=== PATIENT | female | born 1950 | race African-American/Black ===

== ENCOUNTER 2024-02-12 22:33 | Inpatient (IN) | payer MEDICARE, MEDICAID ==
[~2024-02-12] VITALS: Ht 162.6 cm; Wt 59.4 kg
[2024-02-12 23:54] LABS: HEMATOCRIT. 37.6 % (36.0-48.0); HEMOGLOBIN. 12.7 g/dL (12.0-16.0); MEAN CORPUSCULAR HEMOGLOBIN 34.9 pg (28.0-32.0); MEAN CORPUSCULAR HGB CONC 33.8 g/dL (31.0-37.0); MEAN CORPUSCULAR VOLUME 103.4 fL (81.0-99.0); MEAN PLATELET VOLUME 7.5 fl (7.4-10.4); PLATELET 347 x1000/uL (130-400); RED BLOOD CELL COUNT 3.63 mill/uL (4.2-5.4); RED CELL DISTRIBUTION WIDTH 13.5 % (11.6-14.6); WHITE BLOOD COUNT 8.3 x1000/uL (4.5-11.0)
[2024-02-12 23:57] LABS: CHLORIDE 101 mEq/L (98-107); SODIUM 132 mEq/L (136-145)
[2024-02-12 23:58] LABS: CALCIUM 8.8 mg/dL (8.7-10.4); CARBON DIOXIDE 19 mEq/L (21-32)
[2024-02-13] VITALS (29 sets, daily range): BP systolic 111–175; BP diastolic 53–79; PULSE 62–106; RESP 11–23; TEMP 35.78064–37.11408; O2SAT 86–100
[2024-02-13] LABS: DIFFERENTIAL COMMENT 1
[2024-02-13 00:03] LABS: GLUCOSE 127 mg/dL (70-105); UREA NITROGEN BLOOD 72 mg/dL (9-23)
[2024-02-13 00:04] LABS: AMMONIA 19 uMol/L (<32)
[2024-02-13 00:05] LABS: ACETAMINOPHEN < 2 ug/mL (10-30)
[2024-02-13 00:07] LABS: PROTHROMBIN TIME 11.6 sec (9.6-11.0)
[2024-02-13 00:37] LABS: CREATININE 7.8 mg/dL (0.6-1.0)
[2024-02-13 00:38] LABS: POTASSIUM 7.5 mEq/L (3.5-5.1); TROPONIN I HIGH SENSITIVITY 123 ng/L (3.0-34)
[2024-02-13 00:44] LABS: ETHANOL BLOOD < 10 mg/dL (<10)
[2024-02-13 01:00] LABS: PLATELET ESTIMATE NORMAL
[2024-02-13] MEDS ORDERED: SODIUM CHLORIDE 0.9% 1,000 ML IV ONE (01:00)
[2024-02-13] MEDS ORDERED: CALCIUM GLUCONATE 1GM PREMIX 50 ML IV ONE (01:00)
[2024-02-13] MEDS: DEXTROSE 50% WATER 50ML SYRINGE IV ONE ×2 (01:00→06:04)
[2024-02-13] MEDS: SODIUM CHLORIDE 0.9% 250 ML IV ONE (01:11)
[2024-02-13] MEDS: PIPERACILLIN/TAZO 3.375G/50ML 50 ML IV ONE (02:19)
[2024-02-13] MEDS: SODIUM BICARBONATE 8.4% 50MEQ/50ML SYR IV ONE (02:19)
[2024-02-13] MEDS: SODIUM POLYSTYRENE SULFONATE 15 G/60 ML BOT PO ONE (02:20)
[2024-02-13] MEDS: LEVETIRACETAM 500MG PREMIX 100 ML IV ONE (02:54)
[2024-02-13] MEDS ORDERED: ACETAMINOPHEN 650MG SUPP PR PRN ×2 (03:15)
[2024-02-13] MEDS ORDERED: IPRATROPIUM/ALBUTEROL 0.5-3(2.5)MG/3ML NEB HHN PRN (03:15)
[2024-02-13] MEDS ORDERED: ACETAMINOPHEN 325MG TABLET PO PRN (03:15)
[2024-02-13] MEDS ORDERED: ONDANSETRON HCL 4MG/2ML INJ IV PRN (03:15)
[2024-02-13] MEDS: NICARDIPINE 40MG/200ML PREMIX 200 ML IV PRN (03:40)
[2024-02-13] MEDS: CALCIUM GLUCONATE 1GM PREMIX 50 ML IV SCH (03:45)
[2024-02-13] MEDS: FUROSEMIDE 40MG/4ML VIAL IV SCH (03:56)
[2024-02-13] MEDS: VANCOMYCIN 1.25GM/250ML 250 ML IV ONE (04:16)
[2024-02-13 04:34] LABS: CREATINE KINASE MB FRACTION 4.2 ng/mL (0.5-3.6)
[2024-02-13] MEDS: INSULIN REGULAR (HUMULIN R) 1000UNITS/10ML VIAL IV SCH (04:45)
[2024-02-13] MEDS: INSULIN REGULAR (HUMULIN R) 1000UNITS/10ML VIAL IV ONE ×2 (04:49→06:04)
[2024-02-13 05:07] LABS: CREATININE 7.4 mg/dL (0.6-1.0); POTASSIUM 7.1 mEq/L (3.5-5.1)
[2024-02-13] MEDS: ENOXAPARIN 30MG/0.3ML SYR SUBCUT SCH (05:15)
[2024-02-13] MEDS: CALCIUM CHLORIDE 1GM/10ML SYR IV ONE (06:04)
[2024-02-13] MEDS: ALBUTEROL (0.083%) 2.5MG/3ML NEB HHN SCH (06:30)
[2024-02-13] MEDS: INSULIN LISPRO 100 UNITS/ML SUBCUT SCH (08:20)
[2024-02-13] MEDS: DEXTROSE 50% WATER 50ML SYRINGE IV PRN (08:58)
[2024-02-13] MEDS: BLOOD SUGAR DIAGNOSTIC STRIP TEST SCH (09:05)
[2024-02-13] MEDS: LEVETIRACETAM 500MG PREMIX 100 ML IV SCH ×2 (09:08→22:18)
[2024-02-13] MEDS: PANTOPRAZOLE SODIUM 40 MG/VIAL IV SCH (09:08)
[2024-02-13] MEDS: DEXTROSE 50% WATER 50ML SYRINGE IV NR ×2 (10:15→23:12)
[2024-02-13] MEDS: SODIUM ZIRCONIUM CYCLOSILICATE 10GM/PACKET PO NR ×2 (10:15→23:12)
[2024-02-13] MEDS: ALBUTEROL (0.083%) 2.5MG/3ML NEB HHN NR (10:20)
[2024-02-13 10:24] LABS: BG BASE EXCESS -5.3 mmol/L (-2.0-3.0); BG CARBOXYHEMOGLOBIN 0.9 % (0.5-1.5); BG DEOXYHEMOGLOBIN 8.7 % (0.0-5.0); BG HCO3 ACT 20.5 mmol/L (21.0-28.0); BG METHEMOGLOBIN 0.2 % (0.5-1.5); BG OXYGEN SATURATION 91.2 % (94.0-98.0); BG OXYHEMOGLOBIN 90.2 % (94.0-98.0); BG PH 7.316 (7.350-7.450); BG PO2 65.2 mmHg (83.0-108.0); BG SAMPLE SITE RIGHT BRACHIAL; BG TOTAL HEMOGLOBIN 11.9 g/dL (12.0-16.0); BG VENT MODE MASK - SIMPLE
[2024-02-13 10:28] LABS: CLARITY URINE CLEAR (CLEAR); COLOR URINE YELLOW (YELLOW); GLUCOSE URINE NEGATIVE (NEGATIVE); KETONES URINE NEGATIVE (NEGATIVE); LEUKOCYTE ESTERASE URINE NEGATIVE (NEGATIVE); NITRITE URINE NEGATIVE (NEGATIVE); OCCULT BLOOD URINE 2+ (NEGATIVE); PH URINE 7.5 (4.5-8.0); PROTEIN URINE 3+ (NEGATIVE); SPECIFIC GRAVITY URINE 1.011 (1.005-1.030); UROBILINOGEN URINE 0.2 E.U./dL (0.2-1.0)
[2024-02-13] MEDS: NALOXONE HCL 0.4MG/ML 1ML VIAL IV NR (10:28)
[2024-02-13] MEDS: SODIUM BICARBONATE 8.4% 50MEQ/50ML SYR IV NR ×2 (10:37→23:11)
[2024-02-13] MEDS: PIPERACILLIN/TAZO 3.375G/50ML IV SCH ×2 (10:37→16:24)
[2024-02-13] MEDS: INSULIN REGULAR (HUMULIN R) 1000UNITS/10ML VIAL IV NR ×2 (10:42→23:11)
[2024-02-13 10:46] LABS: CALCIUM 9.1 mg/dL (8.7-10.4)
[2024-02-13 10:47] LABS: *AMPHETAMINES SCREEN URINE NEGATIVE (NEGATIVE); *BARBITURATES SCREEN URINE NEGATIVE (NEGATIVE); *BENZODIAZEPINES SCREEN URINE NEGATIVE (NEGATIVE); *COCAINE SCREEN URINE NEGATIVE (NEGATIVE); CANNABINOID URINE SCREEN NEGATIVE (NEGATIVE); ECSTASY MDMA SCREEN URINE NEGATIVE (NEGATIVE); METHADONE URINE SCREEN NEGATIVE (NEGATIVE); OPIATES URINE SCREEN PRESUMPTIVE POSITIVE (NEGATIVE); PHENCYCLIDINE URINE SCREEN NEGATIVE (NEGATIVE)
[2024-02-13 10:53] LABS: SQUAMOUS EPITHELIAL CELL URINE 2+ /lpf (RARE/1+)
[2024-02-13 10:54] LABS: BACTERIA URINE TRACE; RBC URINE 25-50 /hpf (0-2); WBC URINE 0-2 /hpf (0-2)
[2024-02-13] MEDS: CALCIUM GLUCONATE 1GM PREMIX 50 ML IV NR (11:07)
[2024-02-13 11:44] LABS: POTASSIUM 6.9 mEq/L (3.5-5.1)
[2024-02-13 11:45] LABS: CREATININE 7.7 mg/dL (0.6-1.0)
[2024-02-13 13:27] LABS: HEPATITIS B SURFACE ANTIGEN NEGATIVE (Negative)
[2024-02-13 13:47] LABS: HEPATITIS A AB IGM NEGATIVE (Negative)
[2024-02-13 13:48] LABS: HEPATITIS B CORE AB IGM NEGATIVE (Negative); HEPATITIS C AB REACTIVE (Pos) (Negative)
[2024-02-13] MEDS ORDERED: PIPERACILLIN/TAZOBACTAM 3.375 G in DEXTROSE 5% WATER 50 ML IV SCH (14:00)
[2024-02-13 14:55] LABS: CREATINE KINASE MB FRACTION 5.1 ng/mL (0.5-3.6)
[2024-02-13] MEDS: HYDRALAZINE 20MG/ML VIAL IV PRN (21:18)
[2024-02-13 22:38] LABS: CREATINE KINASE MB FRACTION 3.9 ng/mL (0.5-3.6)
[2024-02-13 22:46] LABS: CREATININE 5.9 mg/dL (0.6-1.0)
[2024-02-13] MEDS: NICARDIPINE 50 MG in SODIUM CHLORIDE 0.9% 230 ML IV PRN (23:04)
[2024-02-14] VITALS (74 sets, daily range): BP systolic 115–172; BP diastolic 49–105; PULSE 66–101; RESP 13–26; TEMP 36.61404–37.00296; O2SAT 86–100
[2024-02-14] MEDS: MORPHINE SULFATE 2 MG/ML INJ (NOT FOR IM USE) IV SCH (01:42)
[2024-02-14 06:34] LABS: BG BASE EXCESS 0.9 mmol/L (-2.0-3.0); BG CARBOXYHEMOGLOBIN 0.3 % (0.5-1.5); BG DEOXYHEMOGLOBIN 0.7 % (0.0-5.0); BG FRACTION INSPIRED OXYGEN 100; BG HCO3 ACT 25.7 mmol/L (21.0-28.0); BG METHEMOGLOBIN 0.3 % (0.5-1.5); BG OXYGEN SATURATION 99.3 % (94.0-98.0); BG OXYHEMOGLOBIN 98.7 % (94.0-98.0); BG PCO2 41.8 mmHg (32.0-45.0); BG PH 7.407 (7.350-7.450); BG PO2 167.4 mmHg (83.0-108.0); BG TOTAL HEMOGLOBIN 11.5 g/dL (12.0-16.0); BG VENT MODE HIGH FLOW
[2024-02-14 06:38] LABS: BG BASE EXCESS -0.1 mmol/L (-2.0-3.0); BG DEOXYHEMOGLOBIN 11.4 % (0.0-5.0); BG FRACTION INSPIRED OXYGEN 100; BG HCO3 ACT 24.2 mmol/L (21.0-28.0); BG METHEMOGLOBIN 0.3 % (0.5-1.5); BG OXYGEN SATURATION 88.6 % (94.0-98.0); BG OXYHEMOGLOBIN 88.3 % (94.0-98.0); BG PCO2 38.5 mmHg (32.0-45.0); BG PH 7.417 (7.350-7.450); BG PO2 53.1 mmHg (83.0-108.0); BG TOTAL HEMOGLOBIN 11.8 g/dL (12.0-16.0); BG VENT MODE MASK - NRB
[2024-02-14 06:57] LABS: HEMATOCRIT. 32.1 % (36.0-48.0); HEMOGLOBIN. 10.7 g/dL (12.0-16.0); MEAN CORPUSCULAR HEMOGLOBIN 35.1 pg (28.0-32.0); MEAN CORPUSCULAR HGB CONC 33.2 g/dL (31.0-37.0); MEAN CORPUSCULAR VOLUME 105.7 fL (81.0-99.0); MEAN PLATELET VOLUME 7.6 fl (7.4-10.4); PLATELET 285 x1000/uL (130-400); RED BLOOD CELL COUNT 3.04 mill/uL (4.2-5.4); RED CELL DISTRIBUTION WIDTH 14.1 % (11.6-14.6); WHITE BLOOD COUNT 14.1 x1000/uL (4.5-11.0)
[2024-02-14 07:20] LABS: CHLORIDE 108 mEq/L (98-107); POTASSIUM 5.4 mEq/L (3.5-5.1); SODIUM 145 mEq/L (136-145)
[2024-02-14 07:21] LABS: CALCIUM 8.6 mg/dL (8.7-10.4); CARBON DIOXIDE 22 mEq/L (21-32)
[2024-02-14 07:26] LABS: GLUCOSE 111 mg/dL (70-105)
[2024-02-14 07:27] LABS: LDL CHOLESTEROL 61 mg/dL (5-100); TRIGLYCERIDE 119 mg/dL (0-150); UREA NITROGEN BLOOD 47 mg/dL (9-23)
[2024-02-14 07:28] LABS: CHOLESTEROL 118 mg/dL (<200); DIFFERENTIAL COMMENT 1; HDL CHOLESTEROL 30 mg/dL (>65); T4 FREE 1.11 ng/dL (0.89-1.76); THYROID STIMULATING HORMONE 0.51 uIU/mL (0.55-4.78)
[2024-02-14 07:29] LABS: PHOSPHORUS 4.6 mg/dL (2.5-4.9)
[2024-02-14 07:41] LABS: CREATININE 6.2 mg/dL (0.6-1.0)
[2024-02-14] MEDS ORDERED: LIDOCAINE HCL 1% 10 MG/ML 10ML VIAL ONE (07:46)
[2024-02-14] MEDS: NICARDIPINE 40 MG/200 ML PREMIX 200 ML IV PRN (08:11)
[2024-02-14] MEDS: SODIUM POLYSTYRENE SULFONATE 15 G/60 ML BOT PO SCH (09:01)
[2024-02-14] MEDS: SODIUM ZIRCONIUM CYCLOSILICATE 10GM/PACKET PO SCH (15:38)
[2024-02-14] MEDS: MORPHINE SULFATE 2 MG/ML INJ (NOT FOR IM USE) IV PRN (15:39)
[2024-02-14 16:34] LABS: POTASSIUM 4.7 mEq/L (3.5-5.1)
[2024-02-14 17:03] LABS: PLATELET ESTIMATE NORMAL
[2024-02-14] MEDS: DEXT 5%/0.45% NACL 1000ML 1,000 ML IV SCH (18:52)
[2024-02-15] VITALS (80 sets, daily range): BP systolic 80–173; BP diastolic 51–87; PULSE 56–98; RESP 11–23; TEMP 35.66952–36.6696; O2SAT 72–100
[2024-02-15 06:21] LABS: HEMOGLOBIN 9.4 g/dL (12.0-16.0); MEAN CORPUSCULAR HEMOGLOBIN 34.2 pg (28.0-32.0); MEAN CORPUSCULAR HGB CONC 31.2 g/dL (31.0-37.0); MEAN CORPUSCULAR VOLUME 109.6 fL (81.0-99.0); PLATELET 214 x1000/uL (130-400); RED BLOOD CELL COUNT 2.74 mill/uL (4.2-5.4); RED CELL DISTRIBUTION WIDTH 14.8 % (11.6-14.6); WHITE BLOOD COUNT 10.1 x1000/uL (4.5-11.0)
[2024-02-15 06:38] LABS: POTASSIUM 3.9 mEq/L (3.5-5.1)
[2024-02-15 06:39] LABS: CALCIUM 7.8 mg/dL (8.7-10.4)
[2024-02-15 06:44] LABS: ALBUMIN 3.4 g/dL (3.2-4.8)
[2024-02-15 06:46] LABS: PREALBUMIN 7.7 mg/dl (10.0-40.0)
[2024-02-15] MEDS ORDERED: NALOXONE HCL 0.4MG/ML VIAL IV PRN (12:15)
[2024-02-15] MEDS: VANCOMYCIN 750MG PMX (XELLIA) 150 ML IV SCH (13:47)
[2024-02-15 15:32] LABS: BG BASE EXCESS -4.1 mmol/L (-2.0-3.0); BG CARBOXYHEMOGLOBIN 0.2 % (0.5-1.5); BG FRACTION INSPIRED OXYGEN 75; BG HCO3 ACT 20.6 mmol/L (21.0-28.0); BG METHEMOGLOBIN 0.3 % (0.5-1.5); BG OXYHEMOGLOBIN 92.5 % (94.0-98.0); BG PCO2 36.6 mmHg (32.0-45.0); BG PH 7.369 (7.350-7.450); BG PO2 67.2 mmHg (83.0-108.0); BG SAMPLE SITE LEFT RADIAL; BG VENT MODE HIGH FLOW
[2024-02-15 17:14] LABS: CREATINE KINASE 1003 IU/L (34-145)
[2024-02-15 23:11] LABS: CREATINE KINASE 720 IU/L (34-145)
[2024-02-16] VITALS (61 sets, daily range): BP systolic 132–170; BP diastolic 55–81; PULSE 55–88; RESP 11–22; TEMP 36.22512–36.61404; O2SAT 93–100
[2024-02-16] MEDS: AZITHROMYCIN 500MG/250ML 250 ML IV SCH (00:30)
[2024-02-16 07:21] LABS: HEMATOCRIT 28.8 % (36.0-48.0); HEMOGLOBIN 9.5 g/dL (12.0-16.0); MEAN CORPUSCULAR HEMOGLOBIN 34.9 pg (28.0-32.0); MEAN CORPUSCULAR HGB CONC 32.9 g/dL (31.0-37.0); MEAN CORPUSCULAR VOLUME 106.3 fL (81.0-99.0); PLATELET 210 x1000/uL (130-400); RED BLOOD CELL COUNT 2.71 mill/uL (4.2-5.4); RED CELL DISTRIBUTION WIDTH 13.9 % (11.6-14.6); WHITE BLOOD COUNT 8.6 x1000/uL (4.5-11.0)
[2024-02-16 07:45] LABS: CARBON DIOXIDE 23 mEq/L (21-32); CHLORIDE 106 mEq/L (98-107); POTASSIUM 3.7 mEq/L (3.5-5.1); SODIUM 141 mEq/L (136-145)
[2024-02-16 07:46] LABS: CALCIUM 8.4 mg/dL (8.7-10.4)
[2024-02-16 07:51] LABS: GLUCOSE 116 mg/dL (70-105); UREA NITROGEN BLOOD 38 mg/dL (9-23)
[2024-02-16 07:53] LABS: CREATININE 5.2 mg/dL (0.6-1.0); PHOSPHORUS 4.4 mg/dL (2.5-4.9)
[2024-02-16 09:52] LABS: BG BASE EXCESS -3.5 mmol/L (-2.0-3.0); BG CARBOXYHEMOGLOBIN 0.5 % (0.5-1.5); BG DEOXYHEMOGLOBIN 3.8 % (0.0-5.0); BG FRACTION INSPIRED OXYGEN 40; BG HCO3 ACT 20.6 mmol/L (21.0-28.0); BG METHEMOGLOBIN 0.3 % (0.5-1.5); BG OXYGEN SATURATION 96.2 % (94.0-98.0); BG OXYHEMOGLOBIN 95.4 % (94.0-98.0); BG PCO2 34.2 mmHg (32.0-45.0); BG PH 7.398 (7.350-7.450); BG PO2 80.4 mmHg (83.0-108.0); BG SAMPLE SITE LEFT RADIAL; BG TOTAL HEMOGLOBIN 11.6 g/dL (12.0-16.0); BG VENT MODE HIGH FLOW
[2024-02-16] MEDS: CARVEDILOL 6.25 MG TABLET NG SCH (12:29)
[2024-02-16] MEDS: HYDRALAZINE HCL 25MG TABLET NG SCH (14:00)
[2024-02-16] MEDS: DEXMEDETOMIDINE 400 MCG/100 ML 100 ML IV PRN (20:09)
[2024-02-16] MEDS ORDERED: HYDRALAZINE HCL 25MG TABLET PO SCH (22:00)
[2024-02-17] VITALS (61 sets, daily range): BP systolic 96–190; BP diastolic 41–114; PULSE 47–93; RESP 9–24; TEMP 36.00288–37.28076; O2SAT 92–100
[2024-02-17 06:39] LABS: HEMATOCRIT 29.8 % (36.0-48.0); HEMOGLOBIN 9.7 g/dL (12.0-16.0); MEAN CORPUSCULAR HEMOGLOBIN 34.3 pg (28.0-32.0); MEAN CORPUSCULAR HGB CONC 32.7 g/dL (31.0-37.0); MEAN CORPUSCULAR VOLUME 104.9 fL (81.0-99.0); PLATELET 221 x1000/uL (130-400); RED BLOOD CELL COUNT 2.84 mill/uL (4.2-5.4); RED CELL DISTRIBUTION WIDTH 13.8 % (11.6-14.6); WHITE BLOOD COUNT 6.9 x1000/uL (4.5-11.0)
[2024-02-17 06:46] LABS: CHLORIDE 105 mEq/L (98-107); POTASSIUM 3.4 mEq/L (3.5-5.1); SODIUM 139 mEq/L (136-145)
[2024-02-17 06:47] LABS: CARBON DIOXIDE 21 mEq/L (21-32)
[2024-02-17 06:52] LABS: GLUCOSE 116 mg/dL (70-105); UREA NITROGEN BLOOD 48 mg/dL (9-23)
[2024-02-17 06:54] LABS: PHOSPHORUS 4.3 mg/dL (2.5-4.9)
[2024-02-17] MEDS: POLYVINYL ALCOHOL OPHTH DROPS 15ML EACHEYE SCH (08:55)
[2024-02-17] MEDS ORDERED: QUETIAPINE FUMARATE 25MG TABLET PO SCH (09:00)
[2024-02-17] MEDS: POTASSIUM CHLORIDE 20MEQ/PACKET NG NR (11:28)
[2024-02-17] MEDS: HYDRALAZINE HCL 25MG TABLET NG SCH (14:39)
[2024-02-17] MEDS: IPRATROPIUM/ALBUTEROL 0.5-3(2.5)MG/3ML NEB HHN SCH (14:40)
[2024-02-17] MEDS: SODIUM CHLORIDE 3% FOR INH 4ML NEB INH NR (14:50)
[2024-02-17] MEDS: HYDRALAZINE HCL 50MG TABLET NG SCH (17:42)
[2024-02-17] MEDS: GUAIFENESIN 200MG/10ML SUGAR FREE UDC PO PRN (21:51)
[2024-02-18] VITALS (13 sets, daily range): BP systolic 120–187; BP diastolic 47–69; PULSE 49–71; RESP 10–21; TEMP 36.9474–37.44744; O2SAT 94–100
[2024-02-18 06:25] LABS: CARBON DIOXIDE 22 mEq/L (21-32); CHLORIDE 104 mEq/L (98-107); POTASSIUM 3.6 mEq/L (3.5-5.1); SODIUM 136 mEq/L (136-145)
[2024-02-18 06:26] LABS: CALCIUM 7.9 mg/dL (8.7-10.4)
[2024-02-18 06:31] LABS: CREATININE 4.9 mg/dL (0.6-1.0); GLUCOSE 90 mg/dL (70-105); UREA NITROGEN BLOOD 36 mg/dL (9-23)
[2024-02-18 06:33] LABS: PHOSPHORUS 3.5 mg/dL (2.5-4.9)
[2024-02-18 06:47] LABS: HEMATOCRIT 26.7 % (36.0-48.0); MEAN CORPUSCULAR HEMOGLOBIN 35.6 pg (28.0-32.0); MEAN CORPUSCULAR HGB CONC 33.6 g/dL (31.0-37.0); PLATELET 175 x1000/uL (130-400); RED BLOOD CELL COUNT 2.52 mill/uL (4.2-5.4); RED CELL DISTRIBUTION WIDTH 13.3 % (11.6-14.6); WHITE BLOOD COUNT 5.8 x1000/uL (4.5-11.0)
[2024-02-18] MEDS: MAGNESIUM 2 G PREMIX 50 ML IV NR (09:17)
[2024-02-18] MEDS: HYDRALAZINE HCL 25MG TABLET NG SCH (09:25)
[2024-02-18] MEDS: AZITHROMYCIN 500 MG TABLET PO SCH (20:27)
[2024-02-19] VITALS (19 sets, daily range): BP systolic 159–200; BP diastolic 58–88; PULSE 56–78; RESP 16–23; TEMP 36.22512–37.16964; O2SAT 91–100
[2024-02-19 06:50] LABS: HEMATOCRIT 24.4 % (36.0-48.0); HEMOGLOBIN 7.8 g/dL (12.0-16.0); MEAN CORPUSCULAR HEMOGLOBIN 33.4 pg (28.0-32.0); MEAN CORPUSCULAR VOLUME 104.3 fL (81.0-99.0); PLATELET 169 x1000/uL (130-400); RED BLOOD CELL COUNT 2.34 mill/uL (4.2-5.4); RED CELL DISTRIBUTION WIDTH 13.6 % (11.6-14.6); WHITE BLOOD COUNT 5.6 x1000/uL (4.5-11.0)
[2024-02-19 06:58] LABS: CHLORIDE 104 mEq/L (98-107); POTASSIUM 3.7 mEq/L (3.5-5.1); SODIUM 136 mEq/L (136-145)
[2024-02-19 06:59] LABS: CARBON DIOXIDE 23 mEq/L (21-32)
[2024-02-19 07:00] LABS: CALCIUM 8.1 mg/dL (8.7-10.4)
[2024-02-19 07:04] LABS: GLUCOSE 88 mg/dL (70-105)
[2024-02-19 07:07] LABS: PHOSPHORUS 3.6 mg/dL (2.5-4.9)
[2024-02-19 07:23] LABS: CREATININE 5.7 mg/dL (0.6-1.0); UREA NITROGEN BLOOD 49 mg/dL (9-23)
[2024-02-19] MEDS: HYDRALAZINE HCL 50MG TABLET NG SCH (14:59)
[2024-02-20] VITALS (17 sets, daily range): BP systolic 137–180; BP diastolic 50–75; PULSE 59–74; RESP 13–22; TEMP 36.28068–36.55848; O2SAT 94–100
[2024-02-20] MEDS: CLONIDINE 0.1MG TABLET PO PRN (00:55)
[2024-02-20 05:49] LABS: HEMATOCRIT 24.4 % (36.0-48.0); HEMOGLOBIN 7.9 g/dL (12.0-16.0); MEAN CORPUSCULAR HEMOGLOBIN 33.9 pg (28.0-32.0); MEAN CORPUSCULAR HGB CONC 32.5 g/dL (31.0-37.0); MEAN CORPUSCULAR VOLUME 104.4 fL (81.0-99.0); PLATELET 177 x1000/uL (130-400); RED BLOOD CELL COUNT 2.33 mill/uL (4.2-5.4); RED CELL DISTRIBUTION WIDTH 13.5 % (11.6-14.6)
[2024-02-20 06:05] LABS: CALCIUM 7.9 mg/dL (8.7-10.4); CHLORIDE 106 mEq/L (98-107); POTASSIUM 3.5 mEq/L (3.5-5.1); SODIUM 140 mEq/L (136-145)
[2024-02-20 06:06] LABS: CARBON DIOXIDE 25 mEq/L (21-32)
[2024-02-20 06:11] LABS: CREATININE 4.6 mg/dL (0.6-1.0); GLUCOSE 102 mg/dL (70-105); UREA NITROGEN BLOOD 31 mg/dL (9-23)
[2024-02-20 06:13] LABS: PHOSPHORUS 3.3 mg/dL (2.5-4.9)
[2024-02-20] MEDS: AMLODIPINE 10MG TABLET PO SCH (08:10)
[2024-02-20] MEDS ORDERED: AMLODIPINE 2.5MG TABLET PO SCH (09:00)
[2024-02-20] MEDS: NIFEDIPINE XL 60MG TAB PO NR (10:35)
[2024-02-20] MEDS: HYDRALAZINE HCL 50MG TABLET PO SCH (14:23)
[2024-02-21] VITALS (23 sets, daily range): BP systolic 137–179; BP diastolic 53–129; PULSE 63–84; RESP 14–28; TEMP 36.28068–37.11408; O2SAT 93–100
[2024-02-21] MEDS: NIFEDIPINE XL 60MG TAB PO SCH (08:50)
[2024-02-21] MEDS: HYDRALAZINE HCL 25MG TABLET PO SCH (13:23)
[2024-02-21 18:15] LABS: HEMATOCRIT 24.2 % (36.0-48.0); HEMOGLOBIN 7.8 g/dL (12.0-16.0); MEAN CORPUSCULAR HEMOGLOBIN 33.5 pg (28.0-32.0); MEAN CORPUSCULAR HGB CONC 32.3 g/dL (31.0-37.0); MEAN CORPUSCULAR VOLUME 103.8 fL (81.0-99.0); PLATELET 180 x1000/uL (130-400); RED BLOOD CELL COUNT 2.33 mill/uL (4.2-5.4); RED CELL DISTRIBUTION WIDTH 13.6 % (11.6-14.6); WHITE BLOOD COUNT 4.8 x1000/uL (4.5-11.0)
[2024-02-21 18:22] LABS: CARBON DIOXIDE 25 mEq/L (21-32); CHLORIDE 107 mEq/L (98-107); POTASSIUM 3.2 mEq/L (3.5-5.1); SODIUM 142 mEq/L (136-145)
[2024-02-21 18:23] LABS: CALCIUM 8.3 mg/dL (8.7-10.4)
[2024-02-21 18:28] LABS: CREATININE 4.8 mg/dL (0.6-1.0); GLUCOSE 102 mg/dL (70-105); UREA NITROGEN BLOOD 31 mg/dL (9-23)
[2024-02-22] VITALS (13 sets, daily range): BP systolic 138–180; BP diastolic 58–85; PULSE 66–84; RESP 16–23; TEMP 36.83628–37.11408; O2SAT 92–100
[2024-02-22 07:30] LABS: HEMATOCRIT 25.4 % (36.0-48.0); HEMOGLOBIN 8.2 g/dL (12.0-16.0); MEAN CORPUSCULAR HEMOGLOBIN 33.8 pg (28.0-32.0); MEAN CORPUSCULAR HGB CONC 32.3 g/dL (31.0-37.0); MEAN CORPUSCULAR VOLUME 104.7 fL (81.0-99.0); PLATELET 189 x1000/uL (130-400); RED BLOOD CELL COUNT 2.42 mill/uL (4.2-5.4); RED CELL DISTRIBUTION WIDTH 13.5 % (11.6-14.6); WHITE BLOOD COUNT 4.8 x1000/uL (4.5-11.0)
[2024-02-22 07:33] LABS: POTASSIUM 3.6 mEq/L (3.5-5.1)
[2024-02-22 07:34] LABS: CALCIUM 8.6 mg/dL (8.7-10.4)
[2024-02-22 07:39] LABS: CREATININE 4.1 mg/dL (0.6-1.0)
[2024-02-22] MEDS: ISOSORBIDE MONONITRATE 30MG TABLET SR 24HR PO SCH (15:03)
[2024-02-22] MEDS: NIFEDIPINE XL 60MG TAB PO SCH (20:44)
[2024-02-23] VITALS (20 sets, daily range): BP systolic 139–181; BP diastolic 63–93; PULSE 70–84; RESP 16–23; TEMP 36.22512–37.05852; O2SAT 95–100
[2024-02-24] VITALS (11 sets, daily range): BP systolic 116–173; BP diastolic 59–83; PULSE 66–85; RESP 18–21; TEMP 36.28068–37.11408; O2SAT 95–100
[2024-02-24] MEDS: HYDRALAZINE HCL 100MG TABLET PO SCH (13:22)
[2024-02-24] MEDS: EPOETIN ALFA-EPBX 4,000 UNIT/ML VIAL SUBCUT SCH (22:04)
[2024-02-25] VITALS (13 sets, daily range): BP systolic 132–169; BP diastolic 58–98; PULSE 71–90; RESP 18–22; TEMP 36.114–36.78072; O2SAT 96–100
[2024-02-25] MEDS: ISOSORBIDE MONONITRATE 60MG TABLET SR 24HR PO SCH (09:00)
[2024-02-26] MEDS: ACETAMINOPHEN 325MG TABLET PO PRN (09:18)
[2024-02-26 12:00] VITALS: BP 133/59; PULSE 50; RESP 18; TEMP 36.6696; O2SAT 100
[2024-02-26 20:00] VITALS: BP 111/65; PULSE 61; RESP 18; TEMP 36.22512; O2SAT 95
[2024-02-27] VITALS: BP 155/101; PULSE 72; RESP 17; TEMP 35.94732; O2SAT 99
[2024-02-27 04:00] VITALS: BP 114/59; PULSE 66; RESP 16; TEMP 35.66952; O2SAT 100
[2024-02-27 08:00] VITALS: BP 166/64; PULSE 70; RESP 16; TEMP 35.94732; O2SAT 100
[2024-02-27 12:00] VITALS: BP 143/71; PULSE 81; RESP 18; TEMP 36.44736; O2SAT 100
[2024-02-27 20:00] VITALS: BP 99/63; PULSE 86; RESP 18; TEMP 36.22512; O2SAT 95
[2024-02-27] MEDS ORDERED: ZOLPIDEM TARTRATE 5MG TABLET PO PRN (20:15)
[2024-02-27] MEDS: ZOLPIDEM TARTRATE 5MG TABLET PO PRN (20:27)
[2024-02-28] VITALS: BP 153/60; PULSE 71; RESP 18; TEMP 36.22512; O2SAT 98
[2024-02-28 04:00] VITALS: BP 158/65; PULSE 72; RESP 18; TEMP 36.44736; O2SAT 97
[2024-02-28 08:00] VITALS: BP 161/50; PULSE 83; RESP 18; TEMP 36.6696; O2SAT 100
[2024-02-28 12:00] VITALS: BP 143/59; PULSE 71; RESP 20; TEMP 35.5584; O2SAT 98
[2024-02-28] MEDS: MIRTAZAPINE 15MG TABLET PO SCH (22:12)
[2024-02-29 04:00] VITALS: BP 223/93; PULSE 69; RESP 18; TEMP 36.22512; O2SAT 95
[2024-02-29 08:00] VITALS: BP 154/94; PULSE 66; RESP 18; TEMP 36.05844; O2SAT 97
[2024-02-29 12:00] VITALS: BP 149/59; PULSE 73; RESP 18; TEMP 36.114; O2SAT 96
[2024-02-29 16:00] VITALS: BP 170/68; PULSE 67; RESP 18; TEMP 36.33624; O2SAT 96
[2024-03-01] VITALS (8 sets, daily range): BP systolic 94–177; BP diastolic 56–99; PULSE 66–102; RESP 18; TEMP 36.00288–36.61404; O2SAT 96–97
[2024-03-01 10:39] LABS: HEMATOCRIT 25.2 % (36.0-48.0); HEMOGLOBIN 8.2 g/dL (12.0-16.0); MEAN CORPUSCULAR HEMOGLOBIN 34.4 pg (28.0-32.0); MEAN CORPUSCULAR HGB CONC 32.4 g/dL (31.0-37.0); MEAN CORPUSCULAR VOLUME 105.9 fL (81.0-99.0); PLATELET 207 x1000/uL (130-400); RED BLOOD CELL COUNT 2.38 mill/uL (4.2-5.4); RED CELL DISTRIBUTION WIDTH 13.3 % (11.6-14.6); WHITE BLOOD COUNT 5.2 x1000/uL (4.5-11.0)
[2024-03-01 10:41] LABS: POTASSIUM 4.4 mEq/L (3.5-5.1)
[2024-03-01 10:42] LABS: CALCIUM 9.2 mg/dL (8.7-10.4)
[2024-03-01 11:57] LABS: CREATININE 7.1 mg/dL (0.6-1.0)
[2024-03-02] MEDS: HYDRALAZINE 10 MG in SODIUM CHLORIDE 0.9% 49.5 ML IV PRN (00:03)
[2024-03-02 08:00] VITALS: BP 144/60; PULSE 84; RESP 18; TEMP 36.114; O2SAT 98
[2024-03-02 12:00] VITALS: BP 136/55; PULSE 65; RESP 18; TEMP 36.61404; O2SAT 100
[2024-03-02] MEDS: ENOXAPARIN 30MG/0.3ML SYR SUBCUT SCH (17:10)
[2024-03-02] MEDS: ZOLPIDEM TARTRATE 5MG TABLET PO PRN (21:25)
[2024-03-02 21:49] VITALS: BP 156/54; PULSE 69; RESP 18; TEMP 36.78072; O2SAT 100
[2024-03-03] VITALS (12 sets, daily range): BP systolic 118–207; BP diastolic 61–93; PULSE 63–90; RESP 18–22; TEMP 35.89176–37.00296; O2SAT 98–100
[2024-03-03 09:45] LABS: BASOPHILS % 0.6 % (0.0-2.0); DIFFERENTIAL COMMENT 0; HEMATOCRIT. 24.6 % (36.0-48.0); LYMPHOCYTES % 25.1 % (20.0-50.0); MEAN CORPUSCULAR HEMOGLOBIN 34.6 pg (28.0-32.0); MEAN CORPUSCULAR HGB CONC 32.3 g/dL (31.0-37.0); MEAN CORPUSCULAR VOLUME 107.1 fL (81.0-99.0); MEAN PLATELET VOLUME 8.2 fl (7.4-10.4); MONOCYTES % 9.9 % (2.0-8.0); NEUTROPHILS % 61.4 % (40.0-76.0); PLATELET 202 x1000/uL (130-400); RED CELL DISTRIBUTION WIDTH 14.1 % (11.6-14.6); WHITE BLOOD COUNT 5.3 x1000/uL (4.5-11.0)
[2024-03-03 09:50] LABS: CHLORIDE 108 mEq/L (98-107); POTASSIUM 5.2 mEq/L (3.5-5.1); SODIUM 141 mEq/L (136-145)
[2024-03-03 09:51] LABS: CARBON DIOXIDE 25 mEq/L (21-32)
[2024-03-03 09:56] LABS: GLUCOSE 108 mg/dL (70-105); UREA NITROGEN BLOOD 46 mg/dL (9-23)
[2024-03-03 10:32] LABS: CREATININE 5.7 mg/dL (0.6-1.0)
[2024-03-03 14:28] LABS: HEPATITIS B SURFACE AB < 3.1 mIU/mL (<10)
[2024-03-03 15:01] LABS: HEPATITIS B CORE AB IGM NEGATIVE (Negative)
[2024-03-04] VITALS: BP 144/69; PULSE 71; RESP 19; TEMP 36.22512; O2SAT 98
[2024-03-04 04:00] VITALS: BP 156/75; PULSE 71; RESP 19; TEMP 36.6696; O2SAT 98
[2024-03-04 12:00] VITALS: BP 145/45; PULSE 90; RESP 18; TEMP 37.00296; O2SAT 96
[2024-03-04] MEDS ORDERED: LOV30 SUBCUT (15:25)
[2024-03-04] MEDS ORDERED: TOPUD PO (15:25)
[2024-03-04] MEDS ORDERED: NIFE-32 PO (15:25)
[2024-03-04] MEDS ORDERED: MIRT-89 PO (15:25)
[2024-03-04] MEDS ORDERED: KEPP500 PO (15:25)
[2024-03-04] MEDS ORDERED: ISOS60TA76 PO (15:25)
[2024-03-04] MEDS ORDERED: HYDR100T31 PO (15:25)
[2024-03-04] MEDS ORDERED: DEXT15DR5 EACHEYE (15:25)
[2024-03-04 15:34] VITALS: BP 126/55; PULSE 62; TEMP 97.4; O2SAT 97
[2024-03-04 16:00] VITALS: BP 140/59; PULSE 83; RESP 16; TEMP 36.22512; O2SAT 96
[2024-03-04] MEDS: LEVETIRACETAM 500MG TABLET PO SCH (20:42)
== END 2024-03-04 22:04 | DRG 100 ==
LOC: ER 22:33 → EDBEDREQSVC 02-13 01:04 → EDBEDREQTM 02-13 01:04 → EDBEDREQ 02-13 01:04 → EDBEDREQDT 02-13 01:04 → EDBD 02-13 17:44 → CVICU 02-13 17:44 → 5EST 02-17 16:40 → 6WST 02-24 19:30
PROVIDERS: ADMIT Internal Medicine; ATTEND Internal Medicine
PROC: 5A0935A Assistance with Respiratory Ventilation, Less than 24 Consecutive Hours, High Flow/Velocity Cannula (ICD-10-PCS; 2024-02-13)
PROC: 5A1D70Z Performance of Urinary Filtration, Intermittent, Less than 6 Hours Per Day (ICD-10-PCS; 2024-02-13)
PROC: 5A09357 Assistance with Respiratory Ventilation, Less than 24 Consecutive Hours, Continuous Positive Airway Pressure (ICD-10-PCS; principal; 2024-02-14)
PROC: 5A0945A Assistance with Respiratory Ventilation, 24-96 Consecutive Hours, High Flow/Velocity Cannula (ICD-10-PCS; 2024-02-14)
PROC: 02HV33Z Insertion of Infusion Device into Superior Vena Cava, Percutaneous Approach (ICD-10-PCS; 2024-02-14)
PROC: B548ZZA Ultrasonography of Superior Vena Cava, Guidance (ICD-10-PCS; 2024-02-14)
PROC: 4A10X4Z Monitoring of Central Nervous Electrical Activity, External Approach (ICD-10-PCS; 2024-02-14)
PROC: 5A1935Z Respiratory Ventilation, Less than 24 Consecutive Hours (ICD-10-PCS; 2024-02-15)
PROC: 5A1D70Z Performance of Urinary Filtration, Intermittent, Less than 6 Hours Per Day (ICD-10-PCS; 2024-02-15)
PROC: 5A1D70Z Performance of Urinary Filtration, Intermittent, Less than 6 Hours Per Day (ICD-10-PCS; 2024-02-17)
PROC: 5A1D70Z Performance of Urinary Filtration, Intermittent, Less than 6 Hours Per Day (ICD-10-PCS; 2024-02-19)
PROC: 5A1D70Z Performance of Urinary Filtration, Intermittent, Less than 6 Hours Per Day (ICD-10-PCS; 2024-02-21)
PROC: 5A1D70Z Performance of Urinary Filtration, Intermittent, Less than 6 Hours Per Day (ICD-10-PCS; 2024-02-23)
PROC: 5A1D70Z Performance of Urinary Filtration, Intermittent, Less than 6 Hours Per Day (ICD-10-PCS; 2024-02-25)
PROC: 5A1D70Z Performance of Urinary Filtration, Intermittent, Less than 6 Hours Per Day (ICD-10-PCS; 2024-03-01)
PROC: 5A1D70Z Performance of Urinary Filtration, Intermittent, Less than 6 Hours Per Day (ICD-10-PCS; 2024-03-03)
DX: G40.909 Epilepsy, unspecified, not intractable, without status epilepticus (principal); A41.9 Sepsis, unspecified organism; G92.8 Other toxic encephalopathy; J96.01 Acute respiratory failure with hypoxia; I21.A1 Myocardial infarction type 2; N18.6 End stage renal disease; J18.9 Pneumonia, unspecified organism; N17.9 Acute kidney failure, unspecified; I16.1 Hypertensive emergency; F05 Delirium due to known physiological condition; I12.0 Hypertensive chronic kidney disease with stage 5 chronic kidney disease or end stage renal disease; J98.11 Atelectasis; E83.39 Other disorders of phosphorus metabolism; E87.5 Hyperkalemia; E78.5 Hyperlipidemia, unspecified; B19.20 Unspecified viral hepatitis C without hepatic coma; R13.10 Dysphagia, unspecified; D64.9 Anemia, unspecified; M89.8X9 Other specified disorders of bone, unspecified site; R00.1 Bradycardia, unspecified; E11.22 Type 2 diabetes mellitus with diabetic chronic kidney disease; I25.10 Atherosclerotic heart disease of native coronary artery without angina pectoris; Z79.4 Long term (current) use of insulin; Z79.899 Other long term (current) drug therapy; Z82.49 Family history of ischemic heart disease and other diseases of the circulatory system; Z99.2 Dependence on renal dialysis; Z86.73 Personal history of transient ischemic attack (TIA), and cerebral infarction without residual deficits
CPT/HCPCS: 36415; 36573; 36600; 70551; 71045; 72192; 73030; 73700; 80048; 80061; 80202; 80305; 80307; 80320; 80329; 81003; 82040; 82140; 82270; 82375; 82550; 82553; 82805; 82962; 83036; 83605; 83735; 83880; 84100; 84132; 84134; 84145; 84439; 84443; 84481; 84484; 85025; 85027; 85379; 86705; 86706; 86709; 87340; 90935; 92610; 93005; 93306; 93970; 94640; 95816; 97110; 97116; 97162; 97166; 97168; 97530; 97535; 99291; C1725; J0360; J0456; J0610; J0885; J1650; J1815; J1940; J1953; J2270; J2310; J2470; J2543; J3370; J3475; J3490; J7060; G0480